=== PATIENT | female | born 1990 | race Caucasian/White ===

== ENCOUNTER 2018-06-16 10:52 | Emergency (ER) | payer SELFPAY ==
[2018-06-16 11:03] VITALS: BP 116/97
[2018-06-16] MEDS ORDERED: MAG HYDROX/ALUMINUM HYD/SIMETH 30 ML, Lidocaine 2%Visc 15ml 20 MG, PHENobarb/HYOSCY/ATR... PO ONE ×3 (11:14)
--- NOTE | 2018-06-16 11:14 | ED Physician Documentation ---
Abdominal Pain - HISTORIAN Historian: patient - HPI Stated Complaint: Abdominal pain Chief Complaint: Abdominal Pain Onset: days ago (4) Duration: waxing, waning Timing: other (on and off increased pain with eating) Context: denies: out of country travel, bad food, recent trauma Severity: mild Quality: burning Associated Symptoms: none Exacerbated by: nothing Relieved by: nothing Further Comments: yes (She reports pain (epigastric in her indication of location) that is burning in nature and increased after eating. She has tried TUMS and this did not improve the pain. Mild nasuea (at times) no vomiting or diarrhea. No new food exposures. No fever. No back pain. No blood in urine) - ROS CONST: no problems GI/: none CVS/RESP: denies: shortness of breath, hurts to breath, cough MS/SKIN/LYMPH: denies: rash NEURO/PSYCH: denies: headache, dizziness, light-headedness - SOCIAL HX Smoking History: non-smoker Alcohol Use: none Drug Use: none - FAMILY HX Family History: none - PAST HX Past History: none Ischemic Bowel Risk Factors: none Other History: none Surgeries/Procedures: BLT Immunizations: UTD Home Medications: Ambulatory Orders Medication Instructions Recorded NK 06/16/18 Allergies/Adverse Reactions: Allergies Allergy/AdvReac Type Severity Reaction Status Date / Time No Known Allergies Allergy Verified 06/16/18 11:03 - VITAL SIGNS Vital Signs: Vital Signs Temp Pulse Resp BP Pulse Ox 96.7 F L 70 16 116/97 99 06/16/18 13:20 06/16/18 13:20 06/16/18 13:20 06/16/18 13:20 06/16/18 13:20 - REVIEWED ASSESSMENTS Nursing Assessment Reviewed: Yes Vitals Reviewed: Yes Progress - Progress Progress: 1300: Results discussed. Consider control for treatment if cysts or pain continue DG ED Results Lab/Radiology - Lab Results Lab Results: Lab Results 06/16/18 06/16/18 11:17 11:17 WBC 8.10 K/ul K/ul (4.00-12.00) RBC 5.02 M/ul M/ul (3.90-5.20) Hgb 14.8 g/dL g/dL (12.0-16.0) Hct 43.2 % % (34.5-46.5) MCV 86.1 fl fl (80.0-100.0) MCH 29.4 pg pg (28.0-34.0) MCHC 34.2 g/dL g/dL (30.0-36.0) RDW 13.3 % % (11.3-14.3) Plt Count 397 K/mm3 K/mm3 (130-400) Neut % (Auto) 70.0 % % (39.0-79.0) Lymph % (Auto) 20.6 % % (16.0-50.0) [place] % (Auto) 5.1 % % (0.0-11.0) Eos % (Auto) 2.4 % % (0.0-6.8) Baso % (Auto) 0.7 (0.0-1.5) Neut # (Auto) 5.7 # k/uL # k/uL (1.4-7.7) Lymph # (Auto) 1.7 # k/uL # k/uL (0.6-4.0) [place] # (Auto) 0.4 # k/uL # k/uL (0.0-0.9) Eos # (Auto) 0.2 # k/uL # k/uL (0.0-0.6) Baso # (Auto) 0.1 # k/uL # k/uL (0.0-0.5) Reactive Lymphs % 1.3 % % (0.0-5.0) Reactive Lymphs # 0.1 # k/uL # k/uL (0.0-0.8) Sodium 138 mmol/L mmol/L (136-145) Potassium 4.0 mmol/L mmol/L (3.5-5.1) Chloride 104 mmol/L mmol/L (98-107) Carbon Dioxide 25 mmol/L mmol/L (22-30) BUN 7 mg/dL mg/dL (7-17) Creatinine 0.60 mg/dL mg/dL (0.52-1.04) Estimated Creat Clear 174 Est GFR ( Amer) > 60 (60 - ) Est GFR (Non-Af Amer) > 60 (60 - ) Glucose 87 mg/dL mg/dL (74-106) Calcium 9.3 mg/dL mg/dL (8.4-10.2) Total Bilirubin 0.3 mg/dL mg/dL (0.2-1.3) AST 20 U/L U/L (15-46) ALT 37 U/L U/L (13-69) Alkaline Phosphatase 76 U/L U/L (38-126) Total Protein 7.6 g/dL g/dL (6.3-8.2) Albumin 4.3 g/dL g/dL (3.5-5.0) - Radiology Radiology Impressions: Examination: CT Abdomen/pelvis History: CT A/P W/ CONTRAST, MID ABDOMINAL PAIN FOR ABOUT 5 DAYS, WORSENING (Hx) Comparison exams: None available Technique: CT Abdomen/pelvis with IV protocol. Findings: Liver, spleen, adrenals, pancreas, kidneys and gallbladder are without gross irregularity. No abnormal enhancement. No gallstone. No suspicious renal calcifications. Ureters are nondilated in their course through the abdomen and pelvis. No central calcifications. Bladder margin within normal limits. Abdominal aorta without aneurysm or peripheral atherosclerotic disease. Cardiac silhouette is not enlarged. No pericardial effusion. Bowel unopacified limiting evaluation. No abnormal small bowel dilation. Stool within the large bowel limiting sensitivity. No mesenteric inflammatory changes or free fluid. Appendix is visualized and is without inflammatory changes. Right and left adnexal cysts. Bilateral lower pelvic clips. Osseous structures within normal limits. Lung bases without infiltrate. No effusion. Impression: No acute upper abdominal organ inflammatory process. No abnormal bowel dilation or inflammation. No gallstone. No suspicious renal calcifications or abnormal ureteric dilation. Bilateral ovarian cysts. No lung base consolidation or effusion. Electronically signed on Jun 16, 2018 12:52:43 PM CDT by: Joseph Talbert - Orders Orders: ED Orders Category Date Time Status IV Started NOW Care 06/16/18 11:[address] ABD & PELVIS W/ CON Stat Exams 06/16/18 Ordered CBC/PLATELET/DIFF Stat Lab 06/16/18 11:17 Completed CMP Stat Lab 06/16/18 11:17 Completed UA W/MICRO IF INDICATED Routine Lab 06/16/18 11:30 Ordered URINE HCG Stat Lab 06/16/18 12:11 Ordered Ketorolac Tromethamine [Toradol] Med 06/16/18 13:01 Discontinued 30 mg .ROUTE .STK-MED ONE Ketorolac Tromethamine [Toradol] Med 06/16/18 13:01 Once 30 mg IVP NOW ONE Lidocaine 2%Visc 15ml [Xylocaine] Med 06/16/18 11:16 Discontinued 300 mg .ROUTE .STK-MED ONE Mag Hydrox/Aluminum Hyd/Simeth [Mylanta] 30 ml Med 06/16/18 11:14 Ordered Lidocaine 2%Visc 15ml [Xylocaine] 20 mg PHENobarb/HYOSCY/ATROPINE/SCOP [] 10 ml PO NOW Magnesium, Aluminum Hydroxide [Maalox] Med 06/16/18 11:15 Discontinued 30 ml PO .STK-MED ONE Abdominal Pain Physical Exam - Physical Exam General Appearance: no acute distress, alert EENT: eye inspection normal, ENT inspection normal NECK: normal inspection, thyroid normal RESPIRATORY: no resp distress, chest non-tender, breath sounds normal CVS: reg rate & rhythm, heart sounds normal, equal pulses ABDOMEN: soft, normal bowel sounds, no distension, tenderness (epigastric with palpation ) SKIN: warm/dry, normal color EXTREMITIES: non-tender, normal range of motion, no evidence of injury, no edema NEURO: oriented X3, CN's nml as tested, motor nml, sensation nml, mood/affect nml, cognition normal Vital Signs: Vital Signs Temp Pulse Resp BP Pulse Ox 96.7 F L 70 16 116/97 99 06/16/18 13:20 06/16/18 13:20 06/16/18 13:20 06/16/18 13:20 06/16/18 13:20 Discharge Clincal Impression: Ovarian cyst Qualifiers: Laterality: bilateral Qualified Code(s): N83.201 - Unspecified ovarian cyst, r ight side Referrals: Primary Doctor,No [Primary Care Provider] - 2 Days Additional Instructions: 1. Ibuprofen 800 mg Take 1 by mouth BID as needed for pain 2. Follow up with PCP In 1 week to consider control for symptoms 3. Return to ER for any concerns Condition: Stable Disposition: 01 HOME, SELF-CARE Decision to Admit: NO Date of Decison to Admit: 06/16/18 Decision Time: 13:21
[2018-06-16] MEDS: MAGNESIUM, ALUMINUM HYDROXIDE 30 ML UDC PO ONE (11:30)
[2018-06-16] MEDS: Lidocaine 2%Visc 15ml 20 MG/ML UDC ONE (11:30)
[2018-06-16 11:41] LABS: BASOPHILS % 0.7 (0.0-1.5); EOSINOPHILS % 2.4 % (0.0-6.8); MEAN CORPUSCULAR HEMOGLOBIN 29.4 pg (28.0-34.0); MEAN CORPUSCULAR VOLUME 86.1 fl (80.0-100.0); MONOCYTES % 5.1 % (0.0-11.0); NEUTROPHILS # 5.7 # k/uL (1.4-7.7)
[2018-06-16 12:04] LABS: eGFR (African) > 60; eGFR (Non-African) > 60
[2018-06-16] MEDS: KETOROLAC TROMETHAMINE 30 MG/1ML VIAL ONE (13:12)
[2018-06-16] MEDS: KETOROLAC TROMETHAMINE 30 MG/1ML VIAL IVP ONE (13:12)
[2018-06-16 17:35] LABS: APPEARANCE,URINE CLEAR (CLEAR); COLOR,URINE YELLOW (YELLOW); OCCULT BLOOD,URINE NEGATIVE (NEGATIVE); URINE HCG NEGATIVE (NEGATIVE); UROBILINOGEN URINE 0.2 Eu (0.2-1.0)
--- NOTE | 2018-06-16 18:16 | Diagnostic Imaging Report ---
STEFFI CAMPBELL [facility] [id number] [facility]ly [facility], [facility] [address] [place], [place]. [address] Report Submission Date: Jun 16, 2018 12:52:43 PM CDT Patient Study Name: CHIVO OTOOLE Date: Jun 16, 2018 12:21:56 PM CDT Modality Type: CT Gender: F Description: CT ABD PELVIS W/ CON : 86 Institution: [facility] Physician: STEFFI CAMPBELL Examination: CT Abdomen/pelvis History: CT A/P W/ CONTRAST, MID ABDOMINAL PAIN FOR ABOUT 5 DAYS, WORSENING (Hx) Comparison exams: None available Technique: CT Abdomen/pelvis with IV protocol. Findings: Liver, spleen, adrenals, pancreas, kidneys and gallbladder are without gross irregularity. No abnormal enhancement. No gallstone. No suspicious renal calcifications. Ureters are nondilated in their course through the abdomen and pelvis. No central calcifications. Bladder margin within normal limits. Abdominal aorta without aneurysm or peripheral atherosclerotic disease. Cardiac silhouette is not enlarged. No pericardial effusion. Bowel unopacified limiting evaluation. No abnormal small bowel dilation. Stool within the large bowel limiting sensitivity. No mesenteric inflammatory changes or free fluid. Appendix is visualized and is without inflammatory changes. Right and left adnexal cysts. Bilateral lower pelvic clips. Osseous structures within normal limits. Lung bases without infiltrate. No effusion. Impression: No acute upper abdominal organ inflammatory process. No abnormal bowel dilation or inflammation. No gallstone. No suspicious renal calcifications or abnormal ureteric dilation. Bilateral ovarian cysts. No lung base consolidation or effusion. Electronically signed on Jun 16, 2018 12:52:43 PM CDT by: Joseph Talbert [facility]
== END 2018-06-16 13:20 | disposition home or self-care (01) ==
LOC: ED 10:52
DX: N83.201 Unspecified ovarian cyst, right side (principal); N83.202 Unspecified ovarian cyst, left side
CPT/HCPCS: 74177; 80053; 81002; 81025; 85025; A9270; J1885; 96374; 99284; Q9967; S1016